=== PATIENT | female | born 2000 | race Caucasian/White ===

== ENCOUNTER 2019-09-23 23:47 | Inpatient (IN) | payer MEDICAID ==
[~2019-09-23] VITALS: Ht 152.4 cm; Wt 52.3 kg
[2019-09-24 01:06] LABS: BASOPHILS % (AUTO) 0.8 % (0.0-2.0); EOSINOPHILS % (AUTO) 0.7 % (1.0-6.0); HEMATOCRIT 39.9 % (36-46); HEMOGLOBIN 13.4 g/dL (12.0-16.0); LYMPHOCYTES # (AUTO) 2.4 K/uL (1.0-4.8); LYMPHOCYTES % (AUTO) 33.4 % (22.0-44.0); MEAN CORPUSCULAR HEMOGLOBIN 32.5 pg (26.0-34.0); MEAN CORPUSCULAR HGB CONC 33.7 G/dL (31.0-37.0); MEAN CORPUSCULAR VOLUME 96 fL (80-100); MONOCYTES # (AUTO) 0.7 K/uL (0.1-1.0); MONOCYTES % (AUTO) 10.1 % (2.0-9.0); NEUTROPHILS # (AUTO) 3.9 K/uL (1.8-7.7); PLATELET COUNT (AUTO) 235 K/uL (150-450); RED BLOOD CELL COUNT(AUTO) 4.14 MIL/uL (4.00-5.20); RED CELL DISTRIBUTION WIDTH 12.9 % (11.5-14.5)
[2019-09-24 01:22] LABS: ANION GAP 9 mmol/L (8-16); CALCIUM, TOTAL 9.2 mg/dL (8.8-10.5); CARBON DIOXIDE 30 mmol/L (22-29); CHLORIDE 103 mmol/L (98-107); CREATININE 0.91 mg/dL (0.60-1.30); GLOMERULAR FILTR. RATE CALC > 60 mL/min (>60); GLUCOSE,RANDOM 86 mg/dL (70-110); POTASSIUM 3.4 mmol/L (3.5-5.1); SODIUM SERUM 142 mmol/L (136-145); UREA NITROGEN, BLOOD 9 mg/dL (7-18)
[2019-09-24 01:28] LABS: ALANINE AMINOTRANSFERASE 14 U/L (12-78); ALBUMIN 4.5 g/dL (3.4-5.0); ALKALINE PHOSPHATASE 63 U/L (46-116); ASPARTATE AMINOTRANSFERASE 12 U/L (15-37); BILIRUBIN,TOTAL 0.5 mg/dL (0.1-1.0); TOTAL PROTEIN, SERUM 8.2 g/dL (6.4-8.2)
[2019-09-24] MEDS ORDERED: HALOPERIDOL LACTATE 5 MG/ML VIAL IM ONE (02:45)
[2019-09-24] MEDS ORDERED: LORazepam 2 MG/ML VIAL IM ONE (02:45)
[2019-09-24] MEDS ORDERED: DiphenhydrAMINE HCL 50 MG/ML VIAL IM ONE (02:45)
[2019-09-24] MEDS ORDERED: HALOPERIDOL 5 MG TABLET PO PRN (03:00)
[2019-09-24] MEDS ORDERED: ZOLPIDEM TARTRATE 10 MG TABLET PO PRN (03:00)
[2019-09-24] MEDS ORDERED: POTASSIUM CHLORIDE 10% 40 MEQ/30 ML LIQUID UDCUP PO ONE (04:00)
[2019-09-24 06:23] VITALS: BP 100/60
[2019-09-24] MEDS ORDERED: INFLUENZA VIRUS VACCINE QVS 2019-20 (3YR+)/PF 60 MCG/0.5 ML SYRINGE IM ONE (07:30)
[2019-09-24] MEDS: FLUoxetine HCL 20 MG CAPSULE PO SCH (13:20)
[2019-09-24] MEDS ORDERED: MAGNESIUM HYDROXIDE SUSPENSION 30 ML UDCUP PO PRN (15:30)
[2019-09-24] MEDS ORDERED: CloNIDine HCL 0.1 MG TABLET PO PRN (15:30)
[2019-09-24] MEDS ORDERED: ONDANSETRON HCL 4 MG TABLET PO PRN (15:30)
[2019-09-24] MEDS ORDERED: NICOTINE 14 MG/24 HOUR PATCH TD PRN (15:30)
[2019-09-24] MEDS ORDERED: ALBUTEROL SULFATE HFA 90 MCG/PUFF 8 GM INHALER IH PRN (15:30)
[2019-09-24] MEDS ORDERED: LOPERAMIDE HCL 2 MG CAPSULE PO PRN (15:30)
[2019-09-24] MEDS ORDERED: DOCUSATE SODIUM 100 MG CAPSULE PO PRN (15:30)
[2019-09-24] MEDS ORDERED: MAG HYDROX/AL HYDROX/SIMETH ES 30 ML SUSPENSION UDCUP PO PRN (15:30)
[2019-09-24] MEDS ORDERED: PETROLATUM,WHITE 28 GM JELLY TP PRN (15:30)
[2019-09-24] MEDS ORDERED: IBUPROFEN 400 MG TABLET PO PRN (15:30)
[2019-09-24] MEDS ORDERED: GuaiFENesin/D-METHORPHAN [SUGAR-FREE] 200-20MG/10 ML SYRUP UDCUP PO PRN (15:30)
[2019-09-24] MEDS ORDERED: ACETAMINOPHEN 325 MG TABLET PO PRN (15:30)
[2019-09-24 18:30] VITALS: BP 94/48
[2019-09-25 06:55] VITALS: BP 113/71
[2019-09-25] MEDS: FLUoxetine HCL 20 MG CAPSULE PO SCH (08:05)
[2019-09-25 08:20] VITALS: BP 103/73
[2019-09-25 10:06] LABS: CHOL/HDL RATIO 2.5 (3.9-5.7); FREE T4 (FREE THYROXINE) 1.25 ng/dL (0.76-1.46); POTASSIUM 3.9 mmol/L (3.5-5.1); THYROID STIMULATING HORMONE 0.5 uIU/mL (0.36-3.74)
[2019-09-25 16:12] VITALS: BP 112/60
[2019-09-25] MEDS: LORazepam 2 MG TABLET PO PRN (20:19)
[2019-09-26 06:13] VITALS: BP 111/64
[2019-09-26] MEDS: FLUoxetine HCL 20 MG CAPSULE PO SCH (08:17)
[2019-09-26 08:43] VITALS: BP 134/69
[2019-09-26] MEDS: LORazepam 2 MG TABLET PO PRN ×2 (09:59→16:11)
[2019-09-26 16:23] VITALS: BP 108/71
[2019-09-27] MEDS: LORazepam 2 MG TABLET PO PRN (06:31)
[2019-09-27 06:37] VITALS: BP_SYST 110; BP_SYST 126; BP_DIAS 74
[2019-09-27] MEDS: FLUoxetine HCL 20 MG CAPSULE PO SCH (08:05)
[2019-09-27 08:22] VITALS: BP 112/60
[2019-09-27] MEDS ORDERED: FLUO-191 PO (09:38)
== END 2019-09-27 11:08 | disposition home or self-care (01) | DRG 751 ==
LOC: EMS 23:47 → B2S 09-24 04:03
PROVIDERS: ADMIT Psychiatry & Neurology Psychiatry; ATTEND Psychiatry & Neurology Psychiatry
DX: F33.2 Major depressive disorder, recurrent severe without psychotic features (principal); R45.851 Suicidal ideations; F12.90 Cannabis use, unspecified, uncomplicated; F10.10 Alcohol abuse, uncomplicated; E87.6 Hypokalemia; Z79.899 Other long term (current) drug therapy; Z28.21 Immunization not carried out because of patient refusal
CPT/HCPCS: 84132; 84439; 84443; G0480; J1200; J1630; J2060

== ENCOUNTER 2022-04-06 12:01 | Emergency (ER) | payer MEDICAID, OTHER, SELFPAY ==
[~2022-04-06] VITALS: Ht 152.4 cm; Wt 50.0 kg
[~2022-04-06 12:01] MED LIST: FLUO-177 PO
[2022-04-06] MEDS ORDERED: SODIUM CHLORIDE 0.9% 1,000 ML IV ONE (14:00)
[2022-04-06] MEDS ORDERED: ONDANSETRON HCL 4 MG TABLET PO ONE (14:00)
[2022-04-06] MEDS ORDERED: ONDANSETRON HCL 4 MG/2 ML VIAL ONE (14:04)
[2022-04-06] MEDS ORDERED: ONDANSETRON HCL 4 MG/2 ML VIAL IVP ONE (14:15)
[2022-04-06 15:02] VITALS: BP 117/61
[2022-04-06] MEDS ORDERED: ONDA-104 PO (15:06)
== END 2022-04-06 15:47 | disposition home or self-care (01) ==
LOC: EMS 12:01
DX: K52.9 Noninfective gastroenteritis and colitis, unspecified (principal); F17.210 Nicotine dependence, cigarettes, uncomplicated
CPT/HCPCS: 81025; 96361; 96374; 99283; J2405; J7030